=== PATIENT | female | born 1990 | race Asian ===

== ENCOUNTER 2020-05-03 09:53 | Emergency (ER) | payer MEDICAID ==
[~2020-05-03] VITALS: Ht 152.4 cm; Wt 6.8 kg
[2020-05-03] MEDS ORDERED: normal saline 1000ml 1,000 ML IV ONE (10:10)
[2020-05-03] MEDS ORDERED: iohexol 300mg/ml 100ml inj. ONE (10:30)
--- NOTE | 2020-05-03 10:39 | NUR ---
PT IS REFUSING LAB WORK AND WANTING TO LEAVE. PT INFORMED THAT SHE IS IN NO CONDITION TO LEAVE. PROVIDER NOTIFIED AND SPEAKING WITH PT.
[2020-05-03 12:04] LABS: BASOPHILS # (AUTO) 0.1 X10'3 (0-0.2); BASOPHILS % (AUTO) 0.6 % (0-1); EOSINOPHILS # (AUTO) 0.2 X10'3 (0-0.9); EOSINOPHILS % (AUTO) 1.5 % (0-6); HEMATOCRIT 36.2 % (35.0-45.0); HEMOGLOBIN 11.8 g/dl (12.0-16.0); LYMPHOCYTES # (AUTO) 2.3 X10'3 (1.1-4.8); LYMPHOCYTES % (AUTO) 21.8 % (21-51); MEAN CORPUSCULAR HEMOGLOBIN 26.6 PG (27.0-31.0); MEAN CORPUSCULAR HGB CONC 32.7 g/dL (33.0-36.5); MEAN CORPUSCULAR VOLUME 81.4 FL (78-98); MEAN PLATELET VOLUME 6.6 FL (7.4-10.4); MONOCYTES % (AUTO) 9.3 % (2-12); NEUTROPHILS # (AUTO) 7.1 X10'3 (1.8-7.7); NEUTROPHILS % (AUTO) 66.8 % (42-75); PLATELET COUNT 312 X10'3 (140-440); RED BLOOD COUNT 4.44 X10'6 (4.20-5.60); RED CELL DISTRIBUTION WIDTH 13.9 % (11.5-14.5); WHITE BLOOD COUNT 10.6 X10'3 (4.5-11.0)
[2020-05-03 13:35] VITALS: BP 128/80
[2020-05-03 13:37] LABS: URINE HCG NEGATIVE (NEG)
[2020-05-03 13:43] LABS: URINE AMPHETAMINE SCREEN POSITIVE (Neg); URINE BARBITUATE SCREEN NEGATIVE (Neg); URINE BENZODIAZEPINES SCREEN NEGATIVE (Neg); URINE CANNABINOID SCREEN POSITIVE (Neg); URINE COCAINE SCREEN NEGATIVE (Neg); URINE METHADONE SCREEN NEGATIVE (Neg); URINE OPIATE SCREEN NEGATIVE (Neg); URINE PHENCYCLIDINE SCREEN NEGATIVE (Neg)
== END 2020-05-03 13:45 | disposition home or self-care (01) ==
LOC: ER 09:54
DX: M25.512 Pain in left shoulder (principal); M54.9 Dorsalgia, unspecified; F12.10 Cannabis abuse, uncomplicated; V87.7XXA Person injured in collision between other specified motor vehicles (traffic), initial encounter; Y93.89 Activity, other specified; Y92.89 Other specified places as the place of occurrence of the external cause; Y99.8 Other external cause status
CPT/HCPCS: 36415; 70450; 71260; 72125; 74177; 80305; 80320; 81025; 85025; 93005; 96360; 96361; 99285; J7030; Q9967

== ENCOUNTER 2021-07-07 | Emergency (ER) | payer MEDICAID ==
[~2021-07-07] VITALS: Ht 154.9 cm; Wt 93.3 kg
[2021-07-07 00:34] VITALS: BP 140/96
== END 2021-07-07 06:00 | disposition left against medical advice (07) ==
LOC: ER
DX: M79.89 Other specified soft tissue disorders (principal); Z53.21 Procedure and treatment not carried out due to patient leaving prior to being seen by health care provider

== ENCOUNTER 2024-10-02 15:40 | Emergency (ER) | payer MEDICAID ==
[~2024-10-02] VITALS: Ht 154.9 cm; Wt 106.5 kg
[2024-10-02] MEDS ORDERED: AMOX500C2 PO (16:11)
[2024-10-02] MEDS ORDERED: PRED10TA23 PO (16:11)
[2024-10-02] MEDS ORDERED: CARB15DR91 LEFT EAR (16:11)
[2024-10-02 16:34] VITALS: BP 140/78; PULSE 64; RESP 16; TEMP 98.5; O2SAT 98
== END 2024-10-02 16:27 | disposition home or self-care (01) ==
LOC: ER 15:41
DX: H60.92 Unspecified otitis externa, left ear (principal); H66.92 Otitis media, unspecified, left ear; F12.90 Cannabis use, unspecified, uncomplicated
CPT/HCPCS: 99283